=== PATIENT | female | born 1970 | race Caucasian/White ===

== ENCOUNTER 2021-04-19 11:01 | Emergency (ER) | payer OTHER ==
[~2021-04-19] VITALS: Ht 160 cm; Wt 65.8 kg
[2021-04-19 11:29] VITALS: BP 130/83
== END 2021-04-19 13:05 | disposition home or self-care (01) ==
LOC: ER 11:01
PROVIDERS: Nurse Practitioner Family
DX: U07.1 COVID-19 (principal); J06.9 Acute upper respiratory infection, unspecified; Z88.6 Allergy status to analgesic agent; Z88.8 Allergy status to other drugs, medicaments and biological substances